=== PATIENT | female | born 1970 | race Caucasian/White ===

== ENCOUNTER 2016-10-24 15:07 | Emergency (ER) | payer BC, OTHER ==
[~2016-10-24] VITALS: Ht 152.4 cm; Wt 55.0 kg
[2016-10-24] MEDS ORDERED: DIAZ10TA4 PO (15:26)
[2016-10-24] MEDS ORDERED: ALPR2TAB5 PO (15:26)
[2016-10-24] MEDS ORDERED: CLON-364 PO (15:26)
[2016-10-24 15:48] LABS: HEMOGLOBIN 13.8 g/dL (11.7-16.4)
[2016-10-24 15:54] LABS: BLOOD UREA NITROGEN 5 mg/dL (7-18)
[2016-10-24 16:02] LABS: ACETAMINOPHEN < 2 mcg/mL (10-30)
[2016-10-24] MEDS ORDERED: SODIUM CHLORIDE 0.9% 1,000 ML IV ONE (17:30)
[2016-10-24] MEDS ORDERED: SODIUM CHLORIDE 0.9% 1,000ML IVBOLUS ONE (17:30)
[2016-10-24 21:20] VITALS: BP 110/75
== END 2016-10-24 21:56 | disposition home or self-care (01) ==
LOC: ED 21:53
DX: S09.90XA Unspecified injury of head, initial encounter (principal); F10.120 Alcohol abuse with intoxication, uncomplicated; R41.82 Altered mental status, unspecified; X58.XXXA Exposure to other specified factors, initial encounter; Y93.89 Activity, other specified; Y92.89 Other specified places as the place of occurrence of the external cause; Y99.9 Unspecified external cause status
CPT/HCPCS: 36415; 70450; 80048; 80307; 80329; 82040; 85025; 96360; 99285; J7030; G0480

== ENCOUNTER 2020-02-27 10:59 | Day surgery (SDC) | payer BC, OTHER ==
[~2020-02-27] VITALS: Ht 157.5 cm; Wt 46.9 kg
[~2020-02-27 10:59] MED LIST: ALPR2TAB5 PO; BUPIVACAINE/PF-EPI 0.5% 1:200K ONE; CLON-364 PO; DIAZ10TA4 PO; FENTANYL PF 100 MCG/2ML ONE; LIDOCAINE/PF 1%-EPI 1:200K, 30 ML ONE; MIDAZOLAM 1 MG/ML, 5ML ONE
[2020-02-27] MEDS ORDERED: ZALE5CAP PO (11:21)
[2020-02-27] MEDS ORDERED: GABA-827 PO (11:21)
[2020-02-27 11:23] VITALS: BP 133/90
[2020-02-27] MEDS ORDERED: CHLORHEXIDINE 15 ML UDC MM ONE (11:30)
[2020-02-27 11:54] LABS: HCG UR SG 1.011 (1.003-1.030)
[2020-02-27] MEDS ORDERED: LACTATED RINGERS 1,000 ML IV SCH (12:00)
[2020-02-27] MEDS ORDERED: GLYCOPYRROLATE 0.2MG/1ML, 5ML ONE (13:14)
[2020-02-27] MEDS ORDERED: PROPOFOL 10 MG/ML, 20ML ONE (13:14)
[2020-02-27] MEDS ORDERED: ROCURONIUM 10MG/ML,5ML ONE (13:14)
[2020-02-27] MEDS ORDERED: SUCCINYLCHOLINE 20 MG/ML, 10ML ONE (13:14)
[2020-02-27] MEDS ORDERED: METOCLOPRAMIDE 5 MG/ML, 2ML ONE (13:14)
[2020-02-27] MEDS ORDERED: NEOSTIGMINE 1 MG/ML, 10ML ONE (13:14)
[2020-02-27] MEDS ORDERED: CEFAZOLIN 1,000 MG ONE (13:14)
[2020-02-27] MEDS ORDERED: ONDANSETRON 2MG/ML, 2ML ONE (13:14)
[2020-02-27] MEDS ORDERED: DEXAMETHASONE 4 MG/ML, 1ML ONE (13:14)
[2020-02-27] MEDS ORDERED: FENTANYL PF 100 MCG/2ML IV PRN (13:30)
[2020-02-27] MEDS ORDERED: MEPERIDINE/PF 25MG/0.5ML IVPush PRN (13:30)
[2020-02-27] MEDS ORDERED: LABETALOL 5MG/ML, 20ML IV PRN (13:30)
[2020-02-27] MEDS ORDERED: ACETAMINOPHEN 325 MG TABLET PO PRN (13:30)
[2020-02-27] MEDS ORDERED: OXYcodone 5 MG/5 ML ORAL.SOL UDC PO PRN (13:30)
[2020-02-27] MEDS ORDERED: ALBUTEROL SULFATE 2.5 MG/3 ML NPPB PRN (13:30)
[2020-02-27] MEDS ORDERED: hydrALAzine 20 MG/ML, 1ML IV PRN (13:30)
[2020-02-27] MEDS ORDERED: LORazepam 2 MG/ML, 1ML IVPush PRN (13:30)
[2020-02-27] MEDS ORDERED: HYDROmorphone 1 MG/ML, 1ML INJ IVPush PRN (13:30)
[2020-02-27] MEDS ORDERED: PROMETHAZINE 25 MG/ML, 1ML IVPush PRN (13:30)
== END 2020-02-27 15:30 | disposition home or self-care (01) ==
LOC: OUT 10:59
PROVIDERS: ATTEND Orthopaedic Surgery
DX: S43.432A Superior glenoid labrum lesion of left shoulder, initial encounter (principal); Z11.59 Encounter for screening for other viral diseases; G89.18 Other acute postprocedural pain; M19.012 Primary osteoarthritis, left shoulder; M75.42 Impingement syndrome of left shoulder; M65.812 Other synovitis and tenosynovitis, left shoulder; M75.52 Bursitis of left shoulder; Z79.891 Long term (current) use of opiate analgesic; Z79.899 Other long term (current) drug therapy; Z87.891 Personal history of nicotine dependence; Z88.2 Allergy status to sulfonamides; Z88.5 Allergy status to narcotic agent; Z88.8 Allergy status to other drugs, medicaments and biological substances; Z90.49 Acquired absence of other specified parts of digestive tract; Z98.890 Other specified postprocedural states; Z82.3 Family history of stroke; Z82.49 Family history of ischemic heart disease and other diseases of the circulatory system; X58.XXXA Exposure to other specified factors, initial encounter; Y93.89 Activity, other specified; Y99.8 Other external cause status; Y92.89 Other specified places as the place of occurrence of the external cause
CPT/HCPCS: 29823; 29824; 29826; 36415; 64415; 81025; 87635; J0330; J0690; J1100; J2250; J2704; J2710; J2765; J3010; J3490; J7120; J2405